=== PATIENT | female | born 1950 | race Asian ===

== ENCOUNTER 2021-03-02 21:37 | Emergency (ER) | payer BC, MEDICARE ==
[~2021-03-02] VITALS: Ht 147.3 cm; Wt 44.0 kg
[2021-03-02] MEDS ORDERED: ATIVAN1 MG PO (23:23)
[2021-03-02] MEDS ORDERED: LORAZEPAM 0.5 MG TAB ONE (23:27)
[2021-03-02 23:38] VITALS: BP 171/77
== END 2021-03-02 23:38 | disposition home or self-care (01) ==
LOC: FSED 21:53
DX: R03.0 Elevated blood-pressure reading, without diagnosis of hypertension (principal); R51.9 Headache, unspecified; F43.20 Adjustment disorder, unspecified; E78.5 Hyperlipidemia, unspecified; M81.8 Other osteoporosis without current pathological fracture
CPT/HCPCS: 81003; 99283

== ENCOUNTER 2021-11-13 20:00 | Emergency (ER) | payer MEDICARE ==
[~2021-11-13] VITALS: Ht 147.3 cm; Wt 44.0 kg
[~2021-11-13 20:00] MED LIST: ATIVAN1 MG PO
[2021-11-13 20:20] LABS: BASOPHILS # (AUTO) 0.1 (0.0-0.1); BASOPHILS % 0.7 % (0.0-1.0); EOSINOPHILS # (AUTO) 0.2 (0.0-0.4); EOSINOPHILS % 2.2 % (0.0-6.0); HEMATOCRIT 38.8 % (34.2-44.1); HEMOGLOBIN 13.3 g/dL (12.0-16.0); LYMPHOCYTES # (AUTO) 4.1 (1.0-3.2); LYMPHOCYTES % 56.9 % (18.0-39.1); MEAN CORPUSCULAR HEMOGLOBIN 29.6 pg (28-32); MEAN CORPUSCULAR HGB CONC 34.3 g/dL (31-35); MEAN CORPUSCULAR VOLUME 86.2 fL (81-99); MONOCYTES # (AUTO) 0.5 (0.2-0.8); MONOCYTES % 6.3 % (4.4-11.3); NEUTROPHILS # (AUTO) 2.5 (2.1-6.9); NEUTROPHILS % 33.9 % (38.7-80.0); PLATELET COUNT 208 x10e3/uL (140-360); RED CELL DISTRIBUTION WIDTH 12.7 % (11.7-14.4)
[2021-11-13 20:46] LABS: ALANINE AMINOTRANSFERASE 23 IU/L (0-55); ALBUMIN 3.9 g/dL (3.5-5.0); ALKALINE PHOSPHATASE 60 IU/L (40-150); ANION GAP 14.4 mmol/L (8-16); BLOOD UREA NITROGEN 10 mg/dL (7-26); BUN/CREATININE RATIO 12 (6-25); CALCIUM 9.4 mg/dL (8.4-10.2); CARBON DIOXIDE 24 mmol/L (22-29); CHLORIDE 106 mmol/L (98-107); CREATINE KINASE 213 IU/L (29-168); CREATININE, SERUM 0.82 mg/dL (0.57-1.11); EST GLOMERULAR FILTRATION RATE 68 ML/MIN (60-); GLUCOSE 144 mg/dL (74-118); POTASSIUM 3.4 mmol/L (3.5-5.1); SODIUM 141 mmol/L (136-145)
[2021-11-13] MEDS ORDERED: SODIUM CHLORIDE 0.9% 100 ML ONE (21:17)
[2021-11-13] MEDS ORDERED: IOPAMIDOL 370 MG/ML 200 ML INFUS..BTL INJ ONE (21:18)
[2021-11-13] MEDS ORDERED: HYDRALAZINE HCL 20 MG/ML VIAL IV ONE (22:45)
[2021-11-13] MEDS ORDERED: HYDRALAZINE HCL 20 MG/ML VIAL ONE (22:56)
== END 2021-11-13 22:30 | disposition home or self-care (01) ==
LOC: ER 20:08
DX: I10 Essential (primary) hypertension (principal); R51.9 Headache, unspecified; R53.1 Weakness; M81.0 Age-related osteoporosis without current pathological fracture; Z88.0 Allergy status to penicillin
CPT/HCPCS: 36415; 70496; 70498; 71045; 80053; 82550; 82553; 83880; 84484; 85025; 99283; J0360; J7050; Q9967; 93005

== ENCOUNTER 2021-11-24 13:12 | Emergency (ER) | payer MEDICARE, OTHER ==
[~2021-11-24] VITALS: Ht 147.3 cm; Wt 44.0 kg
[2021-11-24 13:56] LABS: BASOPHILS % 0.5 % (0.0-1.0); EOSINOPHILS # (AUTO) 0.1 (0.0-0.4); EOSINOPHILS % 2.1 % (0.0-6.0); HEMATOCRIT 35.2 % (34.2-44.1); HEMOGLOBIN 12.2 g/dL (12.0-16.0); LYMPHOCYTES # (AUTO) 2.8 (1.0-3.2); LYMPHOCYTES % 45.8 % (18.0-39.1); MEAN CORPUSCULAR HEMOGLOBIN 30.2 pg (28-32); MEAN CORPUSCULAR HGB CONC 34.7 g/dL (31-35); MEAN CORPUSCULAR VOLUME 87.1 fL (81-99); MONOCYTES # (AUTO) 0.3 (0.2-0.8); MONOCYTES % 5.3 % (4.4-11.3); NEUTROPHILS # (AUTO) 2.8 (2.1-6.9); PLATELET COUNT 194 x10e3/uL (140-360); RED BLOOD COUNT 4.04 x10e6/uL (3.6-5.1); RED CELL DISTRIBUTION WIDTH 12.8 % (11.7-14.4)
[2021-11-24 14:08] LABS: ALBUMIN 3.6 g/dL (3.5-5.0); ANION GAP 10.5 mmol/L (8-16); CALCIUM 8.5 mg/dL (8.4-10.2); CREATININE, SERUM 0.8 mg/dL (0.57-1.11); POTASSIUM 3.5 mmol/L (3.5-5.1)
[2021-11-24 15:11] VITALS: BP 150/76
== END 2021-11-24 15:13 | disposition home or self-care (01) ==
LOC: ER 13:17
DX: R42 Dizziness and giddiness (principal); I10 Essential (primary) hypertension; E78.5 Hyperlipidemia, unspecified; F41.9 Anxiety disorder, unspecified; M81.8 Other osteoporosis without current pathological fracture
CPT/HCPCS: 36415; 71045; 80053; 84484; 85025; 93005; 99283

== ENCOUNTER 2021-11-25 12:25 | Emergency (ER) | payer OTHER ==
[~2021-11-25] VITALS: Ht 147.3 cm; Wt 44.0 kg
== END 2021-11-25 13:00 | disposition home or self-care (01) ==
LOC: ER 12:35
DX: I10 Essential (primary) hypertension (principal); F41.9 Anxiety disorder, unspecified; M81.0 Age-related osteoporosis without current pathological fracture; Z88.0 Allergy status to penicillin; Z88.8 Allergy status to other drugs, medicaments and biological substances; Z79.899 Other long term (current) drug therapy
CPT/HCPCS: 99283

== ENCOUNTER 2022-05-11 08:36 | Emergency (ER) | payer OTHER ==
[~2022-05-11] VITALS: Ht 147.3 cm; Wt 44.0 kg
[2022-05-11 09:50] LABS: BASOPHILS # (AUTO) 0.1 (0.0-0.1); BASOPHILS % 0.8 % (0.0-1.0); EOSINOPHILS # (AUTO) 0.1 (0.0-0.4); EOSINOPHILS % 1.6 % (0.0-6.0); HEMATOCRIT 37.4 % (34.2-44.1); HEMOGLOBIN 12.6 g/dL (12.0-16.0); LYMPHOCYTES # (AUTO) 2.4 (1.0-3.2); LYMPHOCYTES % 37.2 % (18.0-39.1); MEAN CORPUSCULAR HEMOGLOBIN 30.2 pg (28-32); MEAN CORPUSCULAR HGB CONC 33.7 g/dL (31-35); MEAN CORPUSCULAR VOLUME 89.7 fL (81-99); MONOCYTES # (AUTO) 0.3 (0.2-0.8); MONOCYTES % 4.6 % (4.4-11.3); NEUTROPHILS # (AUTO) 3.5 (2.1-6.9); NEUTROPHILS % 55.6 % (38.7-80.0); PLATELET COUNT 216 x10e3/uL (140-360); RED BLOOD COUNT 4.17 x10e6/uL (3.6-5.1); RED CELL DISTRIBUTION WIDTH 12.3 % (11.7-14.4)
[2022-05-11 10:10] LABS: ALBUMIN 3.8 g/dL (3.5-5.0); ALBUMIN/GLOBULIN RATIO 1.1 (0.8-2.0); ANION GAP 14.1 mmol/L (8-16); CALCIUM 9.2 mg/dL (8.4-10.2); CREATININE, SERUM 0.79 mg/dL (0.57-1.11); INR 0.9; POTASSIUM 3.1 mmol/L (3.5-5.1)
[2022-05-11] MEDS ORDERED: IOPAMIDOL 370 MG/ML 100 ML INFUS..BTL INJ ONE (10:16)
[2022-05-11] MEDS ORDERED: SODIUM CHLORIDE 0.9% 0 ML ONE (10:17)
[2022-05-11 11:48] VITALS: BP 142/74
== END 2022-05-11 11:30 | disposition home or self-care (01) ==
LOC: ER 08:50
DX: R20.2 Paresthesia of skin (principal); I60.9 Nontraumatic subarachnoid hemorrhage, unspecified; R53.1 Weakness; I10 Essential (primary) hypertension; E78.5 Hyperlipidemia, unspecified; F41.9 Anxiety disorder, unspecified; M81.0 Age-related osteoporosis without current pathological fracture
CPT/HCPCS: 0223U; 36415; 70450; 80053; 84484; 85025; 85610; 93005; 99284; J7050; Q9967

== ENCOUNTER 2024-05-29 07:51 | Outpatient (RCR) | payer MEDICARE | END 2024-05-31 | LOC: PT 07:51 | PROVIDERS: ATTEND Internal Medicine | DX: M19.09 Primary osteoarthritis, other specified site (principal) ==